=== PATIENT | female | born 1975 | race Caucasian/White ===

== ENCOUNTER 2022-09-07 14:18 | Inpatient (IN) | payer MEDICARE ==
[~2022-09-07] VITALS: Ht 160 cm; Wt 54.5 kg
[2022-09-07] MEDS: **UNRESOLVED NON-FORMULARY MED ORDER XX SCH (09:00)
[2022-09-07] MEDS ORDERED: CLON1TAB8 PO (16:21)
[2022-09-07] MEDS ORDERED: INGR80CA PO (16:21)
[2022-09-07] MEDS ORDERED: LITH300C PO (16:21)
[2022-09-07] MEDS ORDERED: HOME MED LIST COMPLETE! XX SCH (16:25)
[2022-09-07] MEDS ORDERED: MOM 30ML SUSPENSION UDC PO PRN (17:40)
[2022-09-07] MEDS ORDERED: MAALOX 30 ML SUSP *UDC PO PRN (17:40)
[2022-09-07] MEDS ORDERED: ACETAMINOPHEN TAB 650MG DOSE (2X325MG) PO PRN (17:40)
[2022-09-07] MEDS ORDERED: OLANZapine ORAL DISINTEGRATING TAB 5MG PO PRN (17:40)
[2022-09-07] MEDS: clonazePAM 1 MG TAB PO PRN (20:43)
[2022-09-07] MEDS: LITHIUM CARBONATE 300 MG CAP PO SCH (20:43)
[2022-09-07 20:53] VITALS: BP 95/58
[2022-09-08 06:43] VITALS: BP 104/55
[2022-09-08] MEDS: LITHIUM CARBONATE 300 MG CAP PO SCH ×2 (08:52→20:19)
[2022-09-08] MEDS ORDERED: INGREZZA 80 MG PO SCH (09:00)
[2022-09-08] MEDS: **UNRESOLVED NON-FORMULARY MED ORDER XX SCH (09:00)
[2022-09-08 18:57] VITALS: BP 130/66
[2022-09-08] MEDS: clonazePAM 1 MG TAB PO PRN (20:20)
[2022-09-08] MEDS: traZODone 50 MG TAB PO PRN (22:33)
[2022-09-09 06:37] VITALS: BP 102/55
[2022-09-09] MEDS: LITHIUM CARBONATE 300 MG CAP PO SCH (08:56)
[2022-09-09] MEDS: **UNRESOLVED NON-FORMULARY MED ORDER XX SCH (08:57)
[2022-09-09 16:18] VITALS: BP 126/69
[2022-09-09] MEDS: traZODone 50 MG TAB PO PRN (20:06)
[2022-09-09] MEDS: LITHIUM CARBONATE 150 MG CAP PO SCH (20:07)
[2022-09-09] MEDS: clonazePAM 1 MG TAB PO PRN (20:31)
[2022-09-10 06:21] VITALS: BP 118/60
[2022-09-10] MEDS: LITHIUM CARBONATE 300 MG CAP PO SCH (08:08)
[2022-09-10] MEDS: clonazePAM 1 MG TAB PO PRN ×2 (13:43→21:50)
[2022-09-10 18:00] VITALS: BP 98/48
[2022-09-10] MEDS: LITHIUM CARBONATE 150 MG CAP PO SCH (20:11)
[2022-09-10] MEDS: traZODone 50 MG TAB PO PRN (20:11)
[2022-09-11 06:06] VITALS: BP 96/62
[2022-09-11] MEDS: LITHIUM CARBONATE 300 MG CAP PO SCH (08:21)
[2022-09-11] MEDS: clonazePAM 1 MG TAB PO PRN ×2 (08:23→18:18)
[2022-09-11] MEDS: LITHIUM CARBONATE 150 MG CAP PO SCH (20:05)
[2022-09-11] MEDS: traZODone 50 MG TAB PO PRN (20:05)
[2022-09-12 06:23] VITALS: BP 98/60
[2022-09-12] MEDS: clonazePAM 1 MG TAB PO PRN ×2 (08:11→17:03)
[2022-09-12] MEDS: LITHIUM CARBONATE 300 MG CAP PO SCH (08:11)
[2022-09-12 15:29] LABS: BASO # 0.1 10^3/uL (0.0-0.2); EOS # 0.1 10^3/uL (0.0-0.5); EOS % 1.6 % (0.0-3.0); HEMATOCRIT 41.9 % (36.0-47.0); HEMOGLOBIN 13.5 g/dl (12.0-15.5); LYMPH # 1.3 10^3/uL (1.5-5.0); LYMPH % 22.6 % (24.0-44.0); MEAN CORPUSCULAR HEMOGLOBIN 28.8 pg (27.0-33.0); MEAN CORPUSCULAR HGB CONC 32.2 g/dl (32.0-36.5); MEAN CORPUSCULAR VOLUME 89.3 fl (80.0-96.0); MONO # 0.5 10^3/uL (0.0-0.8); MONO % 9.2 % (2.0-8.0); NEUTROPHILS # 3.7 10^3/uL (1.5-8.5); NEUTROPHILS % 65.3 % (36.0-66.0); PLATELET COUNT, AUTOMATED 205 10^3/uL (150-450); RED BLOOD COUNT 4.69 10^6/uL (4.00-5.40); WHITE BLOOD COUNT 5.7 10^3/uL (4.0-10.0)
[2022-09-12 15:57] LABS: ALBUMIN 3.7 G/DL (3.2-5.2); ALKALINE PHOSPHATASE 88 U/L (46-116); ALT/SGPT 47 U/L (7.0-40); AST/SGOT 37 U/L (<34); BILIRUBIN,TOTAL 0.5 MG/DL (0.3-1.2); BLOOD UREA NITROGEN 10 MG/DL (9-23); CALCIUM LEVEL 8.8 MG/DL (8.5-10.1); CARBON DIOXIDE LEVEL 28 MMOL/L (20-31); CHLORIDE LEVEL 106 MMOL/L (98-107); CREATININE FOR GFR 0.67 MG/DL (0.55-1.30); GLOMERULAR FILTRATION RATE > 60.0 (>58); GLUCOSE, FASTING 74 MG/DL (60-100); POTASSIUM SERUM 4.5 MMOL/L (3.5-5.1); SODIUM LEVEL 140 MMOL/L (136-145); TOTAL PROTEIN 6.3 G/DL (5.7-8.2)
[2022-09-12 17:51] VITALS: BP 141/59
[2022-09-12] MEDS: traZODone 25MG PER 1/2 TABLET PO PRN (20:20)
[2022-09-12] MEDS: LITHIUM CARBONATE 150 MG CAP PO SCH (20:21)
[2022-09-13] MEDS: clonazePAM 1 MG TAB PO PRN ×2 (01:22→20:23)
[2022-09-13 06:24] VITALS: BP 97/50
[2022-09-13] MEDS: LITHIUM CARBONATE 150 MG CAP PO SCH ×2 (08:22→20:22)
[2022-09-13] MEDS: hydrOXYzine 50 MG TAB PO PRN ×2 (08:22→16:47)
[2022-09-13 16:31] VITALS: BP 98/59
[2022-09-13] MEDS: traZODone 25MG PER 1/2 TABLET PO PRN (20:22)
[2022-09-14 06:41] VITALS: BP 95/50
[2022-09-14] MEDS: LITHIUM CARBONATE 150 MG CAP PO SCH (09:08)
[2022-09-14] MEDS: clonazePAM 1 MG TAB PO PRN (09:09)
[2022-09-14] MEDS ORDERED: TRAZ-252 PO (10:21)
[2022-09-14] MEDS ORDERED: LITH150C PO ×2 (10:21)
[2022-09-14] MEDS ORDERED: CLON1TAB8 PO (10:21)
[2022-09-14] MEDS: hydrOXYzine 50 MG TAB PO PRN (11:53)
[2022-09-15] MEDS ORDERED: CLON1TAB17 PO (16:47)
[2022-09-15] MEDS ORDERED: CLON1TAB8 PO (16:49)
== END 2022-09-14 12:09 | disposition home or self-care (01) | DRG 885 ==
LOC: M ED 14:18 → M ED INP 17:36 → M PSY 20:25
PROVIDERS: ADMIT Psychiatry & Neurology Psychiatry; ATTEND Psychiatry & Neurology Psychiatry
DX: F31.9 Bipolar disorder, unspecified (principal); R45.851 Suicidal ideations; G24.01 Drug induced subacute dyskinesia; Z91.410 Personal history of adult physical and sexual abuse; Z63.0 Problems in relationship with spouse or partner; Z91.128 Patient's intentional underdosing of medication regimen for other reason; Z88.5 Allergy status to narcotic agent; Z79.899 Other long term (current) drug therapy